=== PATIENT | female | born 1960 | race Two or more races ===

== ENCOUNTER 2025-05-06 06:00 | Day surgery (SDC) | payer OTHER ==
[~2025-05-06 06:00] MED LIST: CRESTOR40 MG PO; DIOVAN320 MG PO; HYDRODIURIL12.5 MG PO
[2025-05-06] MEDS ORDERED: CEFTRIAXONE SODIUM 2,000 MG VIAL ONE (07:10)
[2025-05-06] MEDS ORDERED: DIBUCAINE 30 GM TUBE ONE (07:23)
[2025-05-06] MEDS ORDERED: HEMOSTATIC MATRIX 1 KIT KIT TOP ONE (07:24)
[2025-05-06] MEDS ORDERED: BUPIVACAINE HCL/MPF 0.5% 30ML VIAL ONE (07:25)
[2025-05-06] MEDS ORDERED: LIDOCAINE HCL 1%/EPINEPHRINE 20ML VIAL IJ ONE (07:25)
[2025-05-06] MEDS ORDERED: POVIDONE-IODINE 118 ML BOTT TOP ONE (07:25)
[2025-05-06] MEDS ORDERED: MORPHINE SULFATE 4 MG/ML VIAL IV ONE (12:25)
== END 2025-05-06 13:30 | disposition home or self-care (01) ==
LOC: CIR.AMB 06:00
PROVIDERS: ATTEND Colon & Rectal Surgery
DX: D12.8 Benign neoplasm of rectum (principal); K64.1 Second degree hemorrhoids; Z88.2 Allergy status to sulfonamides; Z91.018 Allergy to other foods